=== PATIENT | male | born 1960 | race Hispanic/Latino ===

== ENCOUNTER 2019-04-10 08:46 | Day surgery (SDC) | payer MEDICARE ==
[~2019-04-10] VITALS: Ht 162.6 cm; Wt 98.9 kg
[~2019-04-10 08:46] MED LIST: SODIUM CHLORIDE 0.9% 1000ML 1,000 ML IV ONE
[2019-04-10 10:36] VITALS: BP 172/90
[2019-04-10] MEDS ORDERED: PROPOFOL 10 MG/ML 20ML VIAL IV ONE ×2 (11:08→11:17)
[2019-04-10] MEDS ORDERED: ASPI-555 PO (11:12)
[2019-04-10] MEDS ORDERED: CARV12.511 PO (11:12)
[2019-04-10] MEDS ORDERED: DORZ1DRO7 OP (11:12)
[2019-04-10] MEDS ORDERED: PIOG45TA64 PO (11:12)
[2019-04-10] MEDS ORDERED: LEVO175T9 PO (11:12)
[2019-04-10] MEDS ORDERED: TRAM50TA4 PO (11:12)
[2019-04-10] MEDS ORDERED: CYCL10TA7 PO (11:12)
[2019-04-10] MEDS ORDERED: LINA145C PO (11:12)
[2019-04-10] MEDS ORDERED: LISI-613 PO (11:12)
[2019-04-10] MEDS ORDERED: AMIT25TA9 PO (11:12)
[2019-04-10] MEDS ORDERED: ATOR10TA69 PO (11:12)
[2019-04-10] MEDS ORDERED: PARO10TA71 PO (11:12)
[2019-04-10] MEDS ORDERED: LINA5TAB PO (11:12)
[2019-04-10 11:30] VITALS: BP 88/36
[2019-04-10 11:35] VITALS: BP 118/68
[2019-04-10 11:40] VITALS: BP 120/100
[2019-04-10 11:45] VITALS: BP 119/70
[2019-04-10 11:50] VITALS: BP 148/80
== END 2019-04-10 12:00 | disposition home or self-care (01) ==
LOC: DAH 08:46
PROVIDERS: ATTEND Internal Medicine Gastroenterology
DX: R13.10 Dysphagia, unspecified (principal); K29.50 Unspecified chronic gastritis without bleeding; E78.5 Hyperlipidemia, unspecified; I10 Essential (primary) hypertension; E11.9 Type 2 diabetes mellitus without complications; M19.90 Unspecified osteoarthritis, unspecified site; E03.9 Hypothyroidism, unspecified; H40.9 Unspecified glaucoma; F32.9 Major depressive disorder, single episode, unspecified; Z98.890 Other specified postprocedural states; Z79.899 Other long term (current) drug therapy; Z85.028 Personal history of other malignant neoplasm of stomach; Z79.82 Long term (current) use of aspirin; Z87.891 Personal history of nicotine dependence; Z72.89 Other problems related to lifestyle; Z82.5 Family history of asthma and other chronic lower respiratory diseases
CPT/HCPCS: 43239; 82948 ×2; 88305; A4215; A4221; A4222; A4223; A4606; A4620; A4663; J2704 ×2; J7030